=== PATIENT | female | born 1945 | race Caucasian/White ===

== ENCOUNTER 2016-08-14 17:23 | Observation (INO) | payer BC ==
[~2016-08-14 17:23] MED LIST: ASA5GR PO; ASAB PO; MULTIPLE VIT PO; PRIN5 PO
[2016-08-14] MEDS ORDERED: ZETIA PO (18:06)
[2016-08-14] MEDS ORDERED: COREG3 PO (18:07)
[2016-08-14] MEDS ORDERED: IMDUR30 PO (18:07)
[2016-08-14] MEDS ORDERED: PRIN5 PO (18:07)
[2016-08-14] MEDS ORDERED: HALF81 PO (18:08)
[2016-08-14] MEDS ORDERED: METAMUCIL CAN7 OZ PO (18:08)
[2016-08-14] MEDS ORDERED: DSS PO (18:09)
[2016-08-14] MEDS ORDERED: NITROSTAT0.4 MG SL (18:09)
[2016-08-14] MEDS ORDERED: MULTIVIT/MIN PO (18:10)
[2016-08-14] MEDS ORDERED: OTC VITAMIN D PO (18:10)
[2016-08-14] MEDS ORDERED: CALCIUM PO (18:10)
[2016-08-14 18:15] LABS: BASOPHILS 0.4 %; BASOPHILS ABSOLUTE 0.05 10/3/uL (0.0-0.16); EOSINOPHILS 0.9 %; EOSINOPHILS ABSOLUTE 0.12 10/3/uL (0.0-0.53); ER CBC TAT 0 Hrs 05 Mins; HEMOGLOBIN 12.6 g/dL (12.0-16.0); IMMATURE GRANULOCYTES 0.3 %; IMMATURE GRANULOCYTES ABSOLUTE 0.04 10/3/uL (0.0-0.11); LYMPHOCYTES 13.1 %; LYMPHOCYTES ABSOLUTE 1.81 10/3/uL (0.67-4.30); MEAN CORPUS HGB CONC 34.7 g/dL (32.0-36.0); MEAN CORPUSCULAR HEMOGLOB 29.6 pg (26.0-34.0); MEAN CORPUSCULAR VOLUME 85.4 fL (80-100); MONOCYTES 5.3 %; MONOCYTES ABSOLUTE 0.73 10/3/uL (0.21-1.20); NEUTROPHILS ABSOLUTE 11.05 10/3/uL (2.02-8.40); PLATELET COUNT 241 10/3/uL (150-400); RBC DISTRIBUTION WIDTH 13.3 % (12.0-16.0); RED CELL COUNT 4.25 10/6/uL (4.0-5.6); WHITE BLOOD CELLS 13.8 10/3/uL (4.5-10.5)
[2016-08-14 18:16] LABS: HEMATOCRIT 36.3 % (36.0-48.0); MANUAL DIFF NO %
[2016-08-14 18:22] LABS: INTERNATIONAL NORMAL RATI 1.1 UNITS (-); PROTIME (NOT ORD) 13.9 SEC (12.0-14.5)
[2016-08-14 18:31] LABS: A/G RATIO 0.9 (0.7-1.9); ALBUMIN 3.2 G/DL (3.5-5.0); BUN (BLOOD UREA NITROGEN) 13 MG/DL (6-23); CALCIUM, SERUM 8.8 MG/DL (8.5-10.4); CHLORIDE, SERUM 108 MMOL/L (96-112); CO2 (CARBON DIOXIDE) 25 MMOL/L (24-34); CREATININE 0.91 MG/DL (0.55-1.02); GFR AFRICAN AMERICAN 74 ML/MIN (>=60); GFR NON AFRICAN AMERICAN 64 ML/MIN (>=60); GLOBULIN 3.6 G/DL (2.5-4.1); GLUCOSE, SERUM 97 MG/DL (60-99); POTASSIUM, SERUM 3.5 MMOL/L (3.5-5.3); SGOT(AST) 22 U/L (5-40); SGPT(ALT) 42 U/L (5-65); SODIUM, SERUM 144 MMOL/L (135-148); TOTAL BILIRUBIN 0.4 MG/DL (0-1.2); TOTAL PROTEIN 6.8 G/DL (6.0-8.5); TROPONIN I <0.02 NG/ML (<0.05)
[2016-08-14 18:32] LABS: ALKALINE PHOSPHATASE 87 U/L (45-117)
[2016-08-15] MEDS ORDERED: NORV5 PO (17:04)
== END 2016-08-15 20:40 | disposition home or self-care (01) ==
LOC: ER 17:23 → SSU1 19:32
PROVIDERS: Emergency Medicine
DX: I25.110 Atherosclerotic heart disease of native coronary artery with unstable angina pectoris (principal); E78.2 Mixed hyperlipidemia; I65.23 Occlusion and stenosis of bilateral carotid arteries; I10 Essential (primary) hypertension; Z86.73 Personal history of transient ischemic attack (TIA), and cerebral infarction without residual deficits; G89.29 Other chronic pain; M54.9 Dorsalgia, unspecified; M81.0 Age-related osteoporosis without current pathological fracture; Z88.0 Allergy status to penicillin; Z88.2 Allergy status to sulfonamides; Z88.8 Allergy status to other drugs, medicaments and biological substances; Z79.82 Long term (current) use of aspirin; Z79.899 Other long term (current) drug therapy
CPT/HCPCS: 71010; 80053; 84484; 85025; 85347; 85610; 93005; 93458; 99152; 99153; 99285; A9270-GY; C1769; C1887; C1894; G0378; J2250; J3010; Q9967